=== PATIENT | female | born 1990 | race Caucasian/White ===

== ENCOUNTER 2018-03-02 22:26 | Inpatient (IN) | payer BC, MEDICAID ==
[2018-03-02] MEDS ORDERED: Ondansetron 4 MG/2 ML SDV IVPUSH PRN (23:21)
[2018-03-02] MEDS ORDERED: Sodium Chloride 0.9% 10 ML Syringe FLUSH PRN (23:21)
[2018-03-02] MEDS ORDERED: Nalbuphine 20 MG/ML 1 ML Syringe IVPUSH PRN (23:21)
[2018-03-02] MEDS ORDERED: Oxytocin/Lactated Ringers 10 UNIT/1,000 ML BAG IV SCH (23:30)
[2018-03-02] MEDS ORDERED: Lactated Ringers 1,000 ML IV SCH (23:30)
[2018-03-02] MEDS ORDERED: Ampicillin 2 GM in Sodium Chloride 0.9% 100 ML IV ONE (23:45)
[2018-03-03] MEDS: Oxytocin/Lactated Ringers 10 UNIT/1,000 ML BAG IV SCH ×2 (02:13→04:15)
[2018-03-03] MEDS: Ampicillin 1 GM in Sodium Chloride 0.9% 100 ML IV SCH ×3 (04:05→14:40)
[2018-03-03] MEDS ORDERED: diphenhydrAMINE 50 MG/ML SDV IVPUSH PRN (06:05)
[2018-03-03] MEDS ORDERED: fentaNYL 100 MCG/2 ML SDV EPIDUR PRN (06:05)
[2018-03-03] MEDS ORDERED: ePHEDrine 50 MG/ML SDV IVPUSH PRN (06:05)
[2018-03-03] MEDS ORDERED: fentaNYL 100 MCG/2 ML SDV ONE (06:13)
[2018-03-03] MEDS ORDERED: Bupivacaine/fentaNYL/NS 100 ML Bag EPIDUR SCH (06:15)
--- NOTE | 2018-03-03 06:43 | PCM.PREANE ---
Preanesthetic Assessment - Anesthesia/Transfusion/Family Hx Anesthesia History: Prior Anesthesia Without Reaction Family History of Anesthesia Reaction: No Transfusion History: No Prior Transfusion(s) - Review of Systems General: No Symptoms Pulmonary: No Symptoms Cardiovascular: No Symptoms Gastrointestinal: No Symptoms Neurological: No Symptoms Other: Reports: None - Physical Assessment Pulse: 93 O2 Sat by Pulse Oximetry: 100 Respiratory Rate: 16 Blood Pressure: 124/63 Temperature: 36.3 C Vital Signs: Last Vital Signs Temp 36.6 C 03/02/18 22:45 Pulse 93 03/03/18 00:03 Resp 16 03/02/18 22:45 BP 137/80 03/02/18 22:45 Pulse Ox 100 03/03/18 00:03 Height: 1.63 m Weight: 73.936 kg ASA Class: 2 Mental Status: Alert & Oriented x3 Airway Class: Mallampati = 1 Dentition: Reports: Normal Dentition Thyro-Mental Finger Breadths: 3 Mouth Opening Finger Breadths: 3 ROM/Head Extension: Full Lungs: Clear to Auscultation, Normal Respiratory Effort Cardiovascular: Regular Rate, Regular Rhythm, No Murmurs - Lab Values: Laboratory Last Values WBC 11.08 K/mm3 (3.98-10.04) H 03/02/18 23:40 RBC 3.78 M/mm3 (3.98-5.22) L 03/02/18 23:40 Hgb 12.3 gm/L (11.2-15.7) 03/02/18 23:40 Hct 35.3 % (34.1-44.9) 03/02/18 23:40 MCV 93.4 fl (79.4-94.8) 03/02/18 23:40 MCH 32.5 pg (25.6-32.2) H 03/02/18 23:40 MCHC 34.8 g/dl (32.2-35.5) 03/02/18 23:40 RDW Std Deviation 42.4 fL (36.4-46.3) 03/02/18 23:40 Plt Count 169 K/mm3 (182-369) L 03/02/18 23:40 MPV 11.0 fl (9.4-12.3) 03/02/18 23:40 Neut % (Auto) 61.1 % (34.0-71.1) 03/02/18 23:40 Lymph % (Auto) 25.8 % (19.3-51.7) 03/02/18 23:40 Ware % (Auto) 9.5 % (4.7-12.5) 03/02/18 23:40 Eos % (Auto) 3.1 (0.7-5.8) 03/02/18 23:40 Baso % (Auto) 0.3 % (0.1-1.2) 03/02/18 23:40 Neut # (Auto) 6.78 K/mm3 (1.56-6.13) H 03/02/18 23:40 Lymph # (Auto) 2.86 K/mm3 (1.18-3.74) 03/02/18 23:40 Ware # (Auto) 1.05 K/mm3 (0.24-0.36) H 03/02/18 23:40 Eos # (Auto) 0.34 K/mm3 (0.04-0.36) 03/02/18 23:40 Baso # (Auto) 0.03 K/mm3 (0.01-0.08) 03/02/18 23:40 Membrane Rupture Positive H 03/02/18 22:30 - Allergies Allergies/Adverse Reactions: Allergies Allergy/AdvReac Type Severity Reaction Status Date / Time No Known Allergies Allergy Verified 03/02/18 23:28 - Anesthesia Plan Pre-Op Medication Ordered: None - Acknowledgements Anesthesia Type Planned: Epidural Pt an Appropriate Candidate for the Planned Anesthesia: Yes Alternatives and Risks of Anesthesia Discussed w Pt/Guardian: Yes Pt/Guardian Understands and Agrees with Anesthesia Plan: Yes PreAnesthesia Questionnaire Gastrointestinal History: Reports: GERD 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 OB/BYN History: with 2 vaginal deliveries - Infectious Disease History Infectious Disease History: Reports: Chicken Pox - Past Surgical History GI Surgical History: Reports: Cholecystectomy Other GI Surgeries/Procedures: 2013 - SUBSTANCE USE Smoking Status *Q: Never Smoker Second Hand Smoke Exposure: No Recreational Drug Use History: No - CURRENT (IN HOUSE) MEDS Current Meds: Current Medications Diphenhydramine HCl (Benadryl) 25 mg IVPUSH Q6H PRN PRN Reason: Itching Ephedrine Sulfate (Ephedrine Sulfate) 5 mg IVPUSH ASDIRECTED PRN PRN Reason: HYPOTENTSION Fentanyl (Sublimaze) 100 mcg EPIDUR Q3H PRN PRN Reason: PAIN Last Admin: 03/03/18 06:35 Dose: 100 mcg Fentanyl/Bupivacaine HCl (Fentanyl/Bupivacaine/Ns 2 Mcg-0.125% 100 Ml) 100 ml EPIDUR ASDIRECTED PATRICIA Last Admin: 03/03/18 06:35 Dose: 100 ml Ampicillin Sodium 1 gm/ Sodium (Chloride) 100 mls @ 200 mls/hr IV Q4H [facility] Last Admin: 03/03/18 04:05 Dose: 200 mls/hr Lactated Ringer's (Ringers, Lactated) 1,000 mls @ 100 mls/hr IV ASDIRECTED [facility] Last Admin: 03/03/18 00:03 Dose: 100 mls/hr Oxytocin/Lactated Ringer's (Pitocin In Lr 10 Units/1,000 Ml) 10 unit in 1,000 mls @ 500 mls/hr IV ASDIRECTED PATRICIA Oxytocin/Lactated Ringer's (Pitocin In Lr 10 Units/1,000 Ml) 10 unit in 1,000 mls @ 12 mls/hr IV TITRATE PATRICIA; Protocol Last Admin: 03/03/18 04:15 Dose: 6 munits/min, 36 mls/hr Nalbuphine HCl (Nubain) 10 mg IVPUSH Q2H PRN PRN Reason: Pain (moderate 4-6) Last Admin: 03/03/18 02:15 Dose: 10 mg Ondansetron HCl (Zofran) 4 mg IVPUSH Q4H PRN PRN Reason: Nausea/Vomiting Sodium Chloride (Saline Flush) 10 ml FLUSH ASDIRECTED PRN PRN Reason: Keep Vein Open Discontinued Medications Fentanyl (Sublimaze) Confirm Administered Dose 100 mcg .ROUTE .STK-MED ONE Stop: 03/03/18 06:14 Ampicillin Sodium 2 gm/ Sodium (Chloride) 100 mls @ 200 mls/hr IV ONETIME ONE Stop: 03/03/18 00:14 Last Admin: 03/03/18 00:03 Dose: 200 mls/hr
[2018-03-03] MEDS ORDERED: Bupivacaine 0.25% 10 ML SDV ONE (08:00)
--- NOTE | 2018-03-03 12:18 | PCM.SN ---
- Free Text/Narrative Note: Delivery note: Irlanda is a 28-year-old 3 now para 3003 with an ALEJANDRA of 03/12/2018 and a gestational age of 38-5/7 weeks. She had spontaneous rupture membranes at approximately 2130 hrs. last evening. Came into the hospital shortly after midnight with confirmed rupture membranes with resultant clear amniotic fluid. She was jessica actively but mildly and did change her cervix to approximately 5 cm.. Later in the morning with less than optimal contractions Pitocin augmentation was started. Patient progressed to complete cervical dilation by approximately 1130 hrs. She delivered a viable, napier, male with Apgars of 8 and 9, weight 6 lbs. 4 oz., (2040 g), length of 20.0 inches in a left occiput anterior position at 1140 hrs. He was placed across abdomen. The umbilical cord was allowed to pulse for approximately 2 minutes and then was clamped 2 and cut. Nose and mouth were bulb suctioned. The perineum was noted to be intact. The perineum was noted to be intact and no sutures were necessary. Pitocin was given IV after delivery to facilitate increase in uterine tone and decrease likelihood of bleeding. Placenta delivered spontaneously in a [place] presentation, appeared intact and complete and was discarded per patient desire. Blood loss was 100 mL. Patient plans to bottlefeed. Condition: Good
[2018-03-03] MEDS ORDERED: Witch Hazel Medicated Pads 100/Jar TOP PRN (12:29)
[2018-03-03] MEDS ORDERED: Lanolin 100% Cream 7 GM Tube TOP PRN (12:29)
[2018-03-03] MEDS ORDERED: Benzocaine/Menthol 20%-0.5% Spray 56 GM Canister TOP PRN (12:29)
[2018-03-03] MEDS ORDERED: Docusate Sodium 100 MG Cap PO PRN (12:29)
--- NOTE | 2018-03-03 13:35 | HP ---
DATE OF ADMISSION: 03/03/2018 ADMISSION DIAGNOSIS: 38 and 5/7th week intrauterine , spontaneous rupture of membranes, early labor. HISTORY OF PRESENT ILLNESS: The patient is a 28-year-old 3, para 2-0-0-2 white female who was admitted during the night with reported spontaneous rupture of membranes. This is confirmed in Labor and Delivery with gross rupture of membranes with resultant clear amniotic fluid. The patient has made slow progress and has been started on Pitocin. Her cervix on last evaluation in clinic was 3 cm, 90% effaced, -2 station, mid position, very soft. She now is 5 cm dilated and making some cervical change. She is group B strep positive and has been started on antibiotics. 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 Her last menstrual period was fairly certain, but cycles are somewhat irregular. Previous obstetric history includes the followin. Male born 08/21/2009, at 41 weeks' gestational age after 12 hours of labor - 7 pounds 6 ounces - forceps delivery in [place], child's name is Jeramy. 2. Male infant born 02/03/2014 at 39 weeks gestational age after 8 hours of labor - 7 pounds 4 ounces - normal spontaneous vaginal delivery in [place], [place] - child's name is Teofilo. The patient has menses q.28 days, not using any control at the time of conception, menarche at age 14. course has been relatively unremarkable. The patient did transfer her care into our clinic on 01/06/2018 at approximately 30 and 5/7th weeks gestational age. She is group B strep positive. She has history of migraine headaches. She plans to bottle feed. Quad screen was done on 10/17/2017 and was normal. She desires epidural in Labor and Delivery. [place] depression screen score on 01/06/2018 was 11/30. LABORATORY TESTING: In shows her blood to be A positive with a negative antibody screen. Hemoglobin is 14.5 g/dL. MCV is 93.3, and platelets are 208,000. She is rubella nonimmune. RPR is nonreactive. Hepatitis B and HIV assays were negative. Chlamydia and gonorrhea were positive and negative, respectively. The patient was treated for her Chlamydia. Her group B strep screen is positive. Her second trimester labs showed hemoglobin 12.5 g/dL and platelets of 174,000. Her diabetic screen test was normal at 89. ALLERGIES: None. CURRENT MEDICATIONS: vitamins daily. PAST MEDICAL HISTORY: 1. Vaginal delivery x2. One forceps and one spontaneous. 2. Seasonal allergies. PAST SURGICAL HISTORY: 1. Gallbladder in 2014. 2. [place] teeth extraction. FAMILY HISTORY: Mother is healthy at age 55. Father is healthy but does have hypertension and is treated for this. One brother with colitis and liver problems. Maternal grandmother passed from old age. Maternal grandfather is healthy. Paternal grandmother of breast cancer in her 40s. Paternal grandfather a few years ago from leukemia. No anesthesia, bleeding, blood clotting, or problems noted in the family. SOCIAL HISTORY: The patient is , lives in [place]. 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 She is a college graduate. She does not use any significant amounts of alcohol, drugs, or tobacco. REVIEW OF SYSTEMS: SKIN: Negative. RESPIRATORY: No shortness of breath or infectious symptoms. CARDIOVASCULAR: No chest pain or exercise intolerance. BREASTS: Changes associated with only. The patient plans to bottle feed. GI: Negative. : Changes associated with with increase in fundal height. MUSCULOSKELETAL: Negative. NEUROLOGICAL: Negative. PHYSICAL EXAMINATION: VITAL SIGNS: On last evaluation in clinic, blood pressure was 120/64, weight was 157.6, heart rate was 128. Her pre gravid weight was 125. Her height is 5 feet 4 inches. Her pre gravid BMI was 21.5. GENERAL: The patient is a well-developed, well-nourished, pleasant female of stated age, in no acute distress. SKIN: Warm and dry without lesions. HEENT: Within normal limits. NECK: Within normal limits. BACK: Within normal limits. LUNGS: Clear with good breath sounds in all lung petty. CARDIOVASCULAR: Shows regular rate and rhythm without murmurs. BREASTS: Deferred. ABDOMEN: Protuberant with with fundal height on last evaluation in clinic at 36 cm. Baby in vertex presentation. Cervix on last evaluation in clinic was 3 cm, 90% effaced, -2 station, mid position, very soft, cephalic presentation. EXTREMITIES: Grossly within normal limits. NEUROLOGICAL: Grossly within normal limits. ASSESSMENT: 1. 38 and 5/7th week intrauterine , spontaneous rupture of membranes, early labor. 2. Group B strep screen positive - the patient has received antibiotic prophylaxis in Labor and Delivery. 3. Rubella nonimmune. 4. The patient plans to bottle feed. 5. Quad screen was normal. 6. Epidural desired in Labor and Delivery. 7. History of Chlamydia early in - treated. PLAN: 1. Anticipate normal spontaneous vaginal delivery. Plan to augment with Pitocin as indicated. 2. Group B strep prophylaxis. 3. Bottle-feeding. 4. MMR prior to discharge from the hospital. 5. Epidural p.r.n. per patient's desire. MMODAL /[id number]
[2018-03-03] MEDS ORDERED: Methylergonovine 0.2 MG/1 ML Amp IM PRN (14:02)
[2018-03-03] MEDS: Ibuprofen 600 MG Tab PO PRN ×2 (14:27→21:10)
[2018-03-03] MEDS: Prenatal Multivitamin with Calcium/Folic Acid/Iron Tab PO SCH (17:43)
[2018-03-03] MEDS: Acetaminophen 325 MG Tab PO PRN (17:44)
[2018-03-03] MEDS ORDERED: diphenhydrAMINE 25 MG Cap PO PRN ×2 (18:01→20:49)
[2018-03-04] MEDS: Ibuprofen 600 MG Tab PO PRN ×2 (03:40→07:47)
--- NOTE | 2018-03-04 06:15 | PCM.SN ---
- Free Text/Narrative Note: Clarification/Correction of information in admission history and physical: Chlamydia assay in the course was NOT positive and patient did not receive treatment for chlamydia. Error due to a correctional facility psychiatrist error from another chart.
--- NOTE | 2018-03-04 06:18 | PCM.DCSUM1 ---
Discharge Summary - Hospital Course Free Text/Narrative:: Irlanda is a 28-year-old 3 now para 3003 with an ALEJANDRA of 03/12/2018 and a gestational age of 38-5/7 weeks. She had spontaneous rupture membranes at approximately 2130 hrs. last evening. Came into the hospital shortly after midnight with confirmed rupture membranes with resultant clear amniotic fluid. She was jessica actively but mildly and did change her cervix to approximately 5 cm.. Later in the morning with less than optimal contractions Pitocin augmentation was started. Patient progressed to complete cervical dilation by approximately 1130 hrs. She delivered a viable, napier, male infant with Apgars of 8 and 9, weight 6 lbs. 4 oz., (2040 g), length of 20.0 inches in a left occiput anterior position at 1140 hrs. He was placed across abdomen. The umbilical cord was allowed to pulse for approximately 2 minutes and then was clamped 2 and cut. Nose and mouth were bulb suctioned. The perineum was noted to be intact. The perineum was noted to be intact and no sutures were necessary. Pitocin was given IV after delivery to facilitate increase in uterine tone and decrease likelihood of bleeding. Placenta delivered spontaneously in a [place] presentation, appeared intact and complete and was discarded per patient desire. Blood loss was 100 mL. Patient plans to bottlefeed. Patient is doing well . Vital signs stable. She did receive 1 dose of Methergine 0.2 mg IM shortly after delivery because of slightly increased vaginal/uterine flow. This resulted in addition patient been doing fine since that time. She is ambulating well, voiding without problems and has no significant discomfort other than cramping. She is desiring discharge home. - Discharge Data Discharge Date: 03/04/18 Discharge Disposition: Home, Self-Care 01 Condition: Good - Patient Instructions Diet: Regular Diet as Tolerated Activity: As Tolerated (No intercourse or tampons until bleeding resolves.) Driving: May Drive Today Showering/Bathing: May Shower (May take a bath) Notify Provider of: Fever, Increased Pain, Swelling and Redness, Nausea and/or Vomiting - Discharge Plan Home Medications: Home Meds Acetaminophen [Tylenol] 650 mg PO Q4H PRN tablet 03/04/18 [Rx] Ibuprofen [Motrin] 600 mg PO Q4H PRN tablet 03/04/18 [Rx] Vit with Ca/FA/Iron [ Plus Iron] 1 each PO DAILY tablet [Rx] Referrals: Mina Dahl MD [Physician] - (Return to clinicDr. Dahl2 weeks.) - Discharge Summary/Plan Comment DC Time >30 min.: No Discharge Summary/Plan Comment: Discharge instructions: 1. Discharge home 2. Diet, activity and follow-up discussed with patient. 3. Precautions given concern increased pain, bleeding, temperature, signs/ symptoms of DVT/PE. 4. Medications per home medication was printed, discussed with and given to the patient. 5. Return to clinic-Dr. Dahl[facility] in 2 weeks. Diagnosis: Term -delivered Condition: Good - Patient Data Vitals - Most Recent: Last Vital Signs Temp 36.7 C 03/04/18 03:32 Pulse 83 03/04/18 03:32 Resp 15 03/04/18 03:32 BP 122/80 03/04/18 03:32 Pulse Ox 100 03/04/18 03:32 Weight - Most Recent: 73.936 kg I&O - Last 24 hours: Intake & Output 03/03/18 03/03/18 03/04/18 14:59 22:59 06:59 Intake Total 5100 560 Output Total 1100 Balance 4000 560 Med Orders - Current: Current Medications Acetaminophen (Tylenol) 650 mg PO Q4H PRN PRN Reason: mild pain or fever Last Admin: 03/03/18 17:44 Dose: 650 mg Benzocaine/Menthol (Dermoplast Pain Relief [place]) 0 gm TOP ASDIRECTED PRN PRN Reason: Perineal Comfort Measure Last Admin: 03/03/18 13:02 Dose: 1 applic Diphenhydramine HCl (Benadryl) 25 mg PO BEDTIME PRN PRN Reason: Sleep Last Admin: 03/03/18 21:10 Dose: 25 mg Docusate Sodium (Colace) 100 mg PO BID PRN PRN Reason: Constipation Emollient Ointment (Lansinoh Hpa) 0 gm TOP ASDIRECTED PRN PRN Reason: Sore Nipples Ibuprofen (Motrin) 600 mg PO Q4H PRN PRN Reason: Mild pain or fever Last Admin: 03/04/18 03:40 Dose: 600 mg Methylergonovine Maleate (Methergine) 0.2 mg IM ONETIME PRN PRN Reason: Bleeding Last Admin: 03/03/18 14:13 Dose: 0.2 mg Prenat Multivit/[place]/Iron/Folic Ac ( Plus Iron) 1 each PO DAILY PATRICIA Last Admin: 03/03/18 17:43 Dose: 1 each Witnicolás Ailin (Tucks) 1 pad TOP ASDIRECTED PRN PRN Reason: Hemorrhoid pain Last Admin: 03/03/18 13:02 Dose: 1 pad Discontinued Medications Bupivacaine HCl (Sensorcaine-Mpf 0.25%) 10 ml .ROUTE .STK-MED ONE Stop: 03/03/18 08:01 Diphenhydramine HCl (Benadryl) 25 mg IVPUSH Q6H PRN PRN Reason: Itching Diphenhydramine HCl (Benadryl) 25 mg PO ASDIRECTED PRN PRN Reason: Sleep Ephedrine Sulfate (Ephedrine Sulfate) 5 mg IVPUSH ASDIRECTED PRN PRN Reason: HYPOTENTSION Fentanyl (Sublimaze) 100 mcg EPIDUR Q3H PRN PRN Reason: PAIN Last Admin: 03/03/18 06:35 Dose: 100 mcg Fentanyl (Sublimaze) Confirm Administered Dose 100 mcg .ROUTE .STK-[facility] ONE Stop: 03/03/18 06:14 Last Admin: 03/03/18 10:04 Dose: Not Given Fentanyl/Bupivacaine HCl (Fentanyl/Bupivacaine/Ns 2 Mcg-0.125% 100 Ml) 100 ml EPIDUR ASDIRECTED [facility] Last Admin: 03/03/18 06:35 Dose: 100 ml Ampicillin Sodium 2 gm/ Sodium (Chloride) 100 mls @ 200 mls/hr IV ONETIME ONE Stop: 03/03/18 00:14 Last Admin: 03/03/18 00:03 Dose: 200 mls/hr Ampicillin Sodium 1 gm/ Sodium (Chloride) 100 mls @ 200 mls/hr IV Q4H [facility] Last Admin: 03/03/18 14:40 Dose: Not Given Lactated Ringer's (Ringers, Lactated) 1,000 mls @ 100 mls/hr IV ASDIRECTED [facility] Last Admin: 03/03/18 00:03 Dose: 100 mls/hr Oxytocin/Lactated Ringer's (Pitocin In Lr 10 Units/1,000 Ml) 10 unit in 1,000 mls @ 500 mls/hr IV ASDIRECTED PATRICIA Last Admin: 03/03/18 12:18 Dose: 500 mls/hr Oxytocin/Lactated Ringer's (Pitocin In Lr 10 Units/1,000 Ml) 10 unit in 1,000 mls @ 12 mls/hr IV TITRATE PATRICIA; Protocol Last Titration: 03/03/18 11:45 Dose: 999 mls/hr Nalbuphine HCl (Nubain) 10 mg IVPUSH Q2H PRN PRN Reason: Pain (moderate 4-6) Last Admin: 03/03/18 02:15 Dose: 10 mg Ondansetron HCl (Zofran) 4 mg IVPUSH Q4H PRN PRN Reason: Nausea/Vomiting Sodium Chloride (Saline Flush) 10 ml FLUSH ASDIRECTED PRN PRN Reason: Keep Vein Open
[2018-03-04] MEDS: Prenatal Multivitamin with Calcium/Folic Acid/Iron Tab PO SCH ×2 (07:47→10:15)
--- NOTE | 2018-03-04 08:06 | PCM48HPAN ---
Post Anesthesia Note - EVALUATION WITHIN 48HRS OF ANESTHETIC Vital Signs in Normal Range: Yes Patient Participated in Evaluation: Yes Respiratory Function Stable: Yes Airway Patent: Yes Cardiovascular Function Stable: Yes Hydration Status Stable: Yes Pain Control Satisfactory: Yes Nausea and Vomiting Control Satisfactory: Yes Mental Status Recovered: Yes - COMMENTS/OBSERVATIONS Free Text/Narrative:: Patient states pain control was not as good as last two epidurals. Patient states that after pushing the bolus button, pain relief achieved to only 7-8/10. Patient encouraged in the future to request anesthesia to rebolus if a similiar experience occurs.
[2018-03-04] MEDS ORDERED: Measles, Mumps & Rubella Vaccine 0.5 ML SDV SUBCUT ONE (08:30)
[2018-03-04] MEDS: Acetaminophen 325 MG Tab PO PRN (10:00)
== END 2018-03-04 12:30 | disposition home or self-care (01) | DRG 560 ==
LOC: JD.OBCHECK 22:26 → JD.OB 22:30 → JD.OBCHECK 23:31 → JD.OB 23:32 → OBSVTOIN 03-03 11:40 → JD.OB 03-03 11:41
PROVIDERS: ADMIT Obstetrics & Gynecology; ATTEND Obstetrics & Gynecology
PROC: 10E0XZZ Delivery of Products of Conception, External Approach (ICD-10-PCS; principal; 2018-03-03)
DX: O42.02 Full-term premature rupture of membranes, onset of labor within 24 hours of rupture (principal); Z3A.38 38 weeks gestation of pregnancy; Z37.0 Single live birth; O75.89 Other specified complications of labor and delivery; O99.824 Streptococcus B carrier state complicating childbirth
CPT/HCPCS: 36415; 51702; 59025; 59409; 84112; 85025; 85027; 90471; 90707; A9270-GY; J0290; J2210; J2300; J2590; J3010; J7030; J7120